=== PATIENT | female | born 1955 | race African-American/Black ===

== ENCOUNTER 2018-10-24 03:02 | Emergency (ER) | payer BC, OTHER ==
[~2018-10-24] VITALS: Ht 165.1 cm; Wt 99.8 kg
[2018-10-24] MEDS ORDERED: HYDROcodone-ACET 10/325MG TAB PO ONE (08:30)
[2018-10-24 09:13] VITALS: BP 135/72
[2018-10-24] MEDS: HYDROcodone-ACET 5/325MG TAB PO ONE (09:15)
== END 2018-10-24 09:28 | disposition home or self-care (01) ==
LOC: ER 03:02
DX: M51.36 Other intervertebral disc degeneration, lumbar region (principal); M25.551 Pain in right hip; I10 Essential (primary) hypertension
CPT/HCPCS: 72128; 72131